=== PATIENT | male | born 1990 ===

== ENCOUNTER 2021-08-16 04:28 | Emergency (ER) | payer SELFPAY ==
[2021-08-16 04:34] VITALS: BP 106/85; PULSE 87; TEMP 98.5; BMI 29.5
[2021-08-16] MEDS ORDERED: AMOX TR/POT CLAV 875MG/125MG TABLETS (FP) PO ONE (04:42)
[2021-08-16] MEDS ORDERED: KETOROLAC TROMETHAMINE 30 MG/1 ML VIAL IM ONE (04:42)
[2021-08-16] MEDS ORDERED: AMOX TR/POT CLAV 875MG/125MG TABLETS (FP) ONE (04:43)
[2021-08-16] MEDS ORDERED: KETOROLAC TROMETHAMINE 30 MG/1 ML VIAL ONE (04:43)
== END 2021-08-16 04:49 | disposition home or self-care (01) ==
LOC: FER 04:28
PROC: 3E0233Z Introduction of Anti-inflammatory into Muscle, Percutaneous Approach (ICD-10-PCS; principal; 2021-08-16)
DX: K08.9 Disorder of teeth and supporting structures, unspecified (principal)
CPT/HCPCS: 99283-25